=== PATIENT | male | born 1950 | race Caucasian/White ===

== ENCOUNTER 2017-03-31 09:11 | Day surgery (SDC) | payer MEDICARE, BC ==
[2017-03-29 09:20] VITALS: BMI 27.7
[~2017-03-31 09:11] MED LIST: LACTATED RINGERS 1,000 ML IV SCH; LIDOCAINE 1% 20 ML VIAL (10MG/ML) FOR IV START INTRADERMA PRN
[2017-03-31 10:22] VITALS: RESP 16; TEMP 97.1
[2017-03-31] MEDS ORDERED: PROPOFOL 10 MG/ML 20 ML VIAL IV ONE (11:06)
[2017-03-31] MEDS ORDERED: ePHEDrine 50 MG/ML 1 ML AMP ONE (11:06)
--- NOTE | 2017-03-31 11:47 | P.PCN ---
Date of Procedure: 03/31/17 Preoperative Diagnosis: Postoperative Diagnosis: Procedure(s) Performed: Procedure: Colonoscopy and polypectomy. Preoperative diagnosis: Screening for neoplasia, patient has history of polyps. Postoperative diagnosis: 1. Multiple polyps snared but no large polyps or cancer. 2. Sigmoid diverticulosis with no evidence of acute diverticulitis or strictures. Preparation: HalfLytely prep. Sedation: Was provided by anesthesia. Brief clinical history: The patient is a 67-year-old male who is scheduled for this evaluation because of history of polyps. His last exam was around 3 & 1/2 to 4 years ago. He has no abdominal complaints, bleeding or anemia. Procedure: With the patient on his left lateral decubitus position and after informed consent and adequate sedation, the perianal area was inspected and it did not show any fissures or fistulas. There were no masses felt on digital rectal examination. The Olympus CFQ 160L video colonoscope was then inserted in the rectum in the usual fashion and advanced to the cecum. There was a small polyp in the sigmoid around 40 cm from the anal verge, one around the hepatic flexure and multiple polyps in the cecum which were all snared and retrieved by suction but there were no large polyps or cancer. The mucosa appeared healthy. Few diverticular orifices were seen scattered in the sigmoid with no evidence of acute diverticulitis or strictures. I retroflexed the endoscope in the rectum before the endoscope was withdrawn. The patient tolerated the procedure well. Plan: The patient was reassured. Discussed dietary measures. He will follow up with you as planned and I recommended a repeat exam in 5 years. Implants: Indications for Procedure: Operative Findings: Description of Procedure:
[2017-03-31 12:16] VITALS: BP 121/77; PULSE 69
== END 2017-03-31 12:31 | disposition home or self-care (01) ==
LOC: ORWHC2ENDO 09:11
DX: Z12.11 Encounter for screening for malignant neoplasm of colon (principal); D12.0 Benign neoplasm of cecum; D12.3 Benign neoplasm of transverse colon; D12.5 Benign neoplasm of sigmoid colon; K57.30 Diverticulosis of large intestine without perforation or abscess without bleeding; Z86.010 Personal history of colon polyps; I10 Essential (primary) hypertension; E78.5 Hyperlipidemia, unspecified; J44.9 Chronic obstructive pulmonary disease, unspecified; K21.9 Gastro-esophageal reflux disease without esophagitis; Z79.82 Long term (current) use of aspirin; Z79.899 Other long term (current) drug therapy
CPT/HCPCS: 88305; 45385; J2704

== ENCOUNTER → 2020-08-02 | Outpatient (CLI) | payer MEDICARE, BC ==
--- NOTE | 2020-08-02 13:09 | PE ---
EXAMINATION TYPE: PET CT fusion skull to thigh DATE OF EXAM: 08/02/2020 COMPARISON: Prior outside CT October 23, 2019 and older CTs HISTORY: Abnormal CT, solitary pulmonary nodule. History of prostate cancer 2005. 9 mm right lower lung solitary pulmonary nodule. TECHNIQUE: Following the intravenous administration of 14.3 mCi of F-18 FDG, whole body images are p erformed from the skull base to the midthigh. Images are reviewed on the computer in the coronal, ax ial, and sagittal planes. Reconstructed rotating images are created on independent workstation and r eviewed on the computer. A noncontrast CT is performed in conjunction with the PET scan. SCAN: Initial Scan FINDINGS: SKULL BASE AND NECK: No areas of abnormal hypermetabolic uptake. CHEST, MEDIASTINUM, AND HILAR REGION: Background moderate to advanced underlying emphysematous change s redemonstrated. Some increased markings bilateral mid to lower lungs along with dependent atelectas is. A few scattered micronodules in the lower lungs for reference right middle lobe 3 mm nodule axial image 106. No suspicious greater than 5 mm nodules or nodular consolidation. No abnormal hypermetabo lic uptake noted. ABDOMEN AND PELVIS: Normal excretion is seen. No areas of suspicious hypermetabolic uptake. No adrena l masses. OSSEOUS STRUCTURES: No areas of suspicious hypermetabolic uptake. OTHER CT: Mild calcified plaque bilateral carotid bulb level. Low lung volumes along with mild cardiomegaly. Moderate to severe three-vessel coronary artery calcif ication and/or stent suspected in the RCA distribution. Mild/moderate calcified plaque abdominal aorta extending into branch vessels. Prostate gland is surgi sandeep absent. Scattered pelvic phleboliths and surgical clips in the pelvis. Grade 1 anterolisthesis L5 on S1 with moderate to severe disc space narrowing and vacuum disc phenome non. IMPRESSION: No suspicious hypermetabolic uptake to suggest new active malignancy.
== END | disposition home or self-care (01) ==
LOC: RADPETMAIN 09:20
PROVIDERS: ATTEND Internal Medicine Critical Care Medicine
DX: R91.1 Solitary pulmonary nodule (principal)
CPT/HCPCS: 78815; A9552

== ENCOUNTER → 2020-08-08 | Outpatient (CLI) | payer MEDICARE, BC | END | disposition home or self-care (01) | LOC: CPPFTMAIN 07:12 | PROVIDERS: ATTEND Internal Medicine Critical Care Medicine | DX: J44.9 Chronic obstructive pulmonary disease, unspecified (principal) | CPT/HCPCS: 94060; 94726; 94729 ==

== ENCOUNTER → 2021-05-09 | Outpatient (CLI) | payer MEDICARE, BC ==
[2021-05-09 12:40] LABS: Chol/HDL Ratio 4.79; LDL Cholesterol,Calculated 89.4 mg/dL (0.0-131.0); VLDL Calculation 35.6 mg/dL (5.00-40.00)
== END | disposition home or self-care (01) ==
LOC: LABWHC1 08:05
PROVIDERS: ATTEND Internal Medicine Cardiovascular Disease
DX: E78.2 Mixed hyperlipidemia (principal)
CPT/HCPCS: 36415; 80061; 84450; 84460

== ENCOUNTER 2022-06-01 08:13 | Day surgery (SDC) | payer MEDICARE, BC ==
[2022-05-31 10:58] VITALS: BMI 28.8
[~2022-06-01 08:13] MED LIST changes: -LIDOCAINE 1% 20 ML VIAL (10MG/ML) FOR IV START INTRADERMA PRN
[2022-06-01 08:40] VITALS: RESP 16; TEMP 98.6
[2022-06-01] MEDS ORDERED: LIDOCAINE 1% (10MG/ML) FOR IV START INTRADERMA ONE (08:46)
[2022-06-01] MEDS ORDERED: PROPOFOL 10 MG/ML 20 ML VIAL IV ONE (09:22)
--- NOTE | 2022-06-01 09:46 | P.PCN ---
Date of Procedure: 06/01/22 Procedure(s) Performed: BRIEF HISTORY: Patient is a 72-year-old pleasant white male scheduled for an elective colonoscopy as a part of screening for colorectal neoplasia. PROCEDURE PERFORMED: Colonoscopy snare polypectomy. PREOPERATIVE DIAGNOSIS: Screening for colon cancer. IV sedation per Anesthesia. PROCEDURE: After informed consent was obtained, the patient, was brought into the endoscopy unit. IV sedation was administered by Anesthesia under continuous monitoring. Digital rectal examination was normal. Initially the Olympus CF-160 flexible video colonoscope was then inserted in the rectum, gradually advanced into the cecum without any difficulty. Careful examination was performed as the scope was gradually being withdrawn. Ileocecal valve and the appendiceal orifice were visualized and appeared normal. Prep was excellent. Mucosa of the cecum, appeared normal. In the ascending colon there was a 5 mm 2 polyps removed by snare polypectomy. In the hepatic flexure there was a 1 m and 1.5 cm broad- based polyps removed by snare polypectomy. In the transverse colon was a 1 cm polyp removed by snare polypectomy. In the descending colon there was a 5 mm polyp, 7 mm and 1 cm polyp removed by snare polypectomy. The, sigmoid colon, and rectum appeared normal. Retroflexion was performed in the rectum and no lesions were seen. The patient tolerated the procedure well. IMPRESSION: 5 mm 3 ascending colon polyp status post polypectomy 1 cm, 1.5 cm hepatic flexure polyp status post polypectomy 1 cm transverse colon polyp status post polypectomy 5 mm, 7 mm and 1 cm descending colon polyp status post polypectomy RECOMMENDATIONS: Findings of this examination were discussed with the patient is well as his family. He was advised to follow with the biopsy results. If the biopsy reveals adenoma he can have a repeat colonoscopy in 3 years..
[2022-06-01 10:19] VITALS: BP 148/81; PULSE 60
== END 2022-06-01 10:33 | disposition home or self-care (01) ==
LOC: ORWHC2ENDO 08:13
PROVIDERS: ATTEND Internal Medicine Gastroenterology
DX: Z12.11 Encounter for screening for malignant neoplasm of colon (principal); D12.2 Benign neoplasm of ascending colon; D12.4 Benign neoplasm of descending colon; D12.3 Benign neoplasm of transverse colon; I25.10 Atherosclerotic heart disease of native coronary artery without angina pectoris; I10 Essential (primary) hypertension; J44.9 Chronic obstructive pulmonary disease, unspecified; Z95.5 Presence of coronary angioplasty implant and graft; K21.9 Gastro-esophageal reflux disease without esophagitis; Z91.09 Other allergy status, other than to drugs and biological substances; Z79.899 Other long term (current) drug therapy; Z79.82 Long term (current) use of aspirin; Z87.891 Personal history of nicotine dependence; Z80.9 Family history of malignant neoplasm, unspecified; Z82.49 Family history of ischemic heart disease and other diseases of the circulatory system; Z83.6 Family history of other diseases of the respiratory system
CPT/HCPCS: 88305; 45385; J2704

== ENCOUNTER → 2022-06-25 | Outpatient (CLI) | payer MEDICARE, BC ==
[2022-06-25 11:24] LABS: ALT 21 U/L (10-49); AST 16 U/L (14-35); Chol/HDL Ratio 3.85 Ratio; LDL Cholesterol,Calculated 73.5 mg/dL (0.0-131.0)
== END | disposition home or self-care (01) ==
LOC: LABWHC1 07:34
PROVIDERS: ATTEND Internal Medicine Cardiovascular Disease
DX: E78.2 Mixed hyperlipidemia (principal)
CPT/HCPCS: 36415; 80061; 84450; 84460